=== PATIENT | male | born 1960 | race African-American/Black ===

== ENCOUNTER 2019-09-11 23:41 | Emergency (ER) | payer OTHER ==
[~2019-09-11] VITALS: Ht 170.2 cm; Wt 86.0 kg
[~2019-09-11 23:41] MED LIST: FLUO20TA25 PO; HYDR25TA6 PO; NIFE20CA PO
[2019-09-12] MEDS ORDERED: ONDANSETRON ODT 4 MG PO ONE
[2019-09-12] MEDS ORDERED: ONDANSETRON ODT 4 MG ONE (00:07)
[2019-09-12 00:16] LABS: BASOPHILS # (AUTO) 0.01 x10^3/uL (0-0.1); BASOPHILS % (AUTO) 0 % (0-1); EOSINOPHILS # (AUTO) 0.36 x10^3/uL (0-0.4); EOSINOPHILS % (AUTO) 4 % (1-7); LYMPHOCYTES # (AUTO) 1.44 x10^3/uL (1-3.4); LYMPHOCYTES % (AUTO) 15 % (22-44); MD NO; MEAN CORPUSCULAR HEMOGLOBIN 29.5 pg (27.5-34.5); MEAN CORPUSCULAR HGB CONC 32.4 g/dL (33.2-36.2); MEAN PLATELET VOLUME 8.1 fL (7.4-10.4); MONOCYTES # (AUTO) 0.81 x10^3/uL (0.2-0.8); MONOCYTES % (AUTO) 8 % (2-9); NEUTROPHILS # (AUTO) 7.14 x10^3/uL (1.8-6.8); NEUTROPHILS % (AUTO) 73 % (42-75); PLATELET COUNT 270 x10^3/uL (130-400); RED BLOOD COUNT 5.74 x10^6/uL (4.38-5.82); RED CELL DISTRIBUTION WIDTH 13.9 % (9.4-14.8)
--- NOTE | 2019-09-12 00:21 | NUR ---
THIS PT CAME FROM [facility] FOR "POSSIBLE BOWEL OBSTRUCTION." PT WAS ADMITTED HERE 2 WEEKS AGO FOR THE SAME. PT COMPLAINS OF 3 DAYS OF PAIN, N/V AND HARD TIME POOPING, BUT DOESN'T CONSIDER HIMSELF CONSITPATED BECAUSE HE HAS HAD BOWEL MOVEMENTS. PT STATED HE HAD BOWEL REST WITH NG TUBE PREVIOUSLY BUT DID NOT HAVE SX BECAUSE HE HAS "MESH AND SCAR TISSUE OVER HIS STOMACH." PT CONNECTED TO BP, AND O2 MONITORS. LAYING IN BED, HANDCUFFED TO BED, LAW ENFORCEMENT REMAINS WITH PT.
[2019-09-12 00:28] LABS: ALANINE AMINOTRANSFERASE 21 U/L (12-78); ALBUMIN 3.8 g/dL (3.4-5.0); ANION GAP 6 mmol/L (5-15); CHLORIDE 101 mmol/L (98-107)
[2019-09-12 00:30] LABS: ALKALINE PHOSPHATASE 76 U/L (45-117); BILIRUBIN,TOTAL 0.7 mg/dL (0.2-1.0); TOTAL PROTEIN 8.5 g/dL (6.4-8.2)
[2019-09-12] MEDS ORDERED: KETOROLAC 30 MG/1 ML ONE (01:20)
[2019-09-12 01:24] VITALS: BP 134/77
--- NOTE | 2019-09-12 01:25 | NUR ---
PT REMAINS IN BED, URINAL AT BEDSIDE, PT IS CALM, RESPIRATIONS EVEN AND UNLABORED. VSS, NO SIGNS OF DISTRESS. LAW ENFORCEMENT REMAINS AT BEDSIDE.
--- NOTE | 2019-09-12 01:26 | NUR ---
UA CANCELLED PER MD.
[2019-09-12] MEDS ORDERED: KETOROLAC 30 MG/1 ML IM ONE (01:30)
[2019-09-12] MEDS ORDERED: KETOROLAC 30 MG/1 ML IVPush ONE (01:30)
== END 2019-09-12 01:49 ==
LOC: ED 09-12 01:43
DX: K59.00 Constipation, unspecified (principal); R10.84 Generalized abdominal pain; R11.2 Nausea with vomiting, unspecified; R94.31 Abnormal electrocardiogram [ECG] [EKG]; I10 Essential (primary) hypertension; Z87.891 Personal history of nicotine dependence
CPT/HCPCS: 36415; 74021; 80053; 83690; 85025; 93005; 96374; 99285; J1885; Q0162